=== PATIENT | female | born 1985 | race Caucasian/White ===

== ENCOUNTER 2025-02-28 15:25 | Emergency (ER) | payer BC, OTHER ==
[2025-02-28] MEDS: Sodium Chloride 0.9% 10 ML Syringe FLUSH PRN (15:50)
[2025-02-28] MEDS: Ondansetron 4 MG/2 ML SDV IVPUSH ONE (16:00)
[2025-02-28 16:14] LABS: BASOPHILS ABSOLUTE AUTO 0.12 K/uL (0.02-0.10); BASOPHILS PERCENT AUTO 1.0 % (0.0-0.5); EOSINOPHILS ABSOLUTE AUTO 0.42 K/uL (0.04-0.40); EOSINOPHILS PERCENT AUTO 3.6 % (1.0-5.0); LYMPHOCYTES ABSOLUTE AUTO 2.35 K/uL (1.50-4.00); LYMPHOCYTES PERCENT AUTO 20.2 % (20.0-40.0); MEAN PLATELET VOLUME 9.7 fL (6.0-10.0); MONOCYTES ABSOLUTE AUTO 0.84 K/uL (0.20-0.80); MONOCYTES PERCENT AUTO 7.2 % (3.0-10.0); NEUTROPHILS ABSOLUTE AUTO 7.89 K/uL (2.00-7.50); NEUTROPHILS PERCENT AUTO 68.0 % (45.0-70.0); PLATELET COUNT,PLT 364 K/uL (150-500); RED BLOOD CELL COUNT 5.14 M/uL (3.80-5.80); RED CELL DISTRIBUTION WIDTH 14.1 % (11.0-16.0); WHITE BLOOD CELL COUNT,WBC 11.6 K/uL (4.0-11.0)
[2025-02-28 16:16] LABS: APPEARANCE,URINE CLEAR (CLEAR); GLUCOSE,URINE NEGATIVE (NEGATIVE)
[2025-02-28 16:23] LABS: OCCULT BLOOD,URINE NEGATIVE (NEGATIVE)
[2025-02-28 16:40] LABS: A/G RATIO 1.0 (0.8-2.0); ALANINE AMINOTRANSFERASE,ALT 55.0 U/L (12-78); ASPARTATE AMNIOTRANSFERASE,AST 17.0 U/L (15-37); BILIRUBIN TOTAL 0.2 mg/dL (0.0-1.0); BLOOD UREA NITROGEN,BUN 13.0 mg/dL (8-26); CARBON DIOXIDE,CO2 23.1 mmol/L (21.0-32.0); CHLORIDE,CL 104.0 mmol/L (98-107); CREATININE 0.76 mg/dL (0.55-1.02); EST CRCL DRUG DOSING (CG) 88.54 mL/min; ESTIMATED GFR 102.0 mL/min (>60); GLUCOSE RANDOM 95.0 mg/dL (74-100); POTASSIUM,K 3.7 mmol/L (3.5-5.1); PROTEIN TOTAL,TP 7.7 g/dL (6.4-8.2); SODIUM,NA 138.0 mmol/L (136-145)
[2025-02-28] MEDS: Sodium Chloride 0.9% 50 ML SDV FLUSH SCH (16:59)
[2025-02-28] MEDS: Iopamidol 612 MG/ML 100 ML Bottle IV PRN (16:59)
== END 2025-02-28 18:02 | disposition home or self-care (01) ==
LOC: LB.ED 15:25
DX: K52.9 Noninfective gastroenteritis and colitis, unspecified (principal); J45.909 Unspecified asthma, uncomplicated; Z88.8 Allergy status to other drugs, medicaments and biological substances; Z79.899 Other long term (current) drug therapy
CPT/HCPCS: 36415; 74177; 80053; 81003; 81025; 85025; 86140; 96361; 96374; 99284-25; A9270-GY; J2405; J7030; Q9967